=== PATIENT | female | born 1995 | race Caucasian/White ===

== ENCOUNTER 2021-04-14 12:17 | Day surgery (SDC) | payer BC, OTHER ==
[~2021-04-14 12:17] MED LIST: Lactated Ringers 1,000 ML IV SCH; Sodium Chloride 0.9% 10 ML Syringe FLUSH PRN
[2021-04-14] MEDS ORDERED: Propofol 200 MG/20 ML SDV ONE ×3 (13:00→14:21)
[2021-04-14] MEDS ORDERED: fentaNYL 100 MCG/2 ML SDV ONE (13:00)
--- NOTE | 2021-04-15 08:17 | OR ---
PREOPERATIVE DIAGNOSES: 1. Irritable bowel syndrome, diarrhea predominance. 2. Rectal pain with history of rectal bleeding. This was thought to be due to anal fissure. Symptoms improved. 3. History of small intestinal bacterial overgrowth. Previously treated with rifaximin x2 courses. 4. Patient has had previous colonoscopy with GI in [place] 12/2016. Biopsies at that time were unrevealing. More recently, she has had positive fecal leukocytes and positive fecal calprotectin tests. 5. History of slow transit on gastric emptying study. No family history of colon cancer. POSTOPERATIVE DIAGNOSES: 1. Possible mild area of inflammation to the terminal ileum. Biopsies taken from distal ileum and terminal ileum. Friable mucosa noted with these biopsies in the terminal ileum. 2. Otherwise normal-appearing colon. Random biopsies were taken from each segment as well as the rectal area. PROCEDURE: Colonoscopy with cold biopsies x2 sites (distal and terminal ileum as well as random colon). SURGEON: Migue Way M.D. ANESTHESIA: Monitored anesthesia care. BOWEL PREP: Good. DESCRIPTION OF PROCEDURE: [place] is a 25-year-old female who was brought to the endoscopy suite after discussing risks and benefits of the procedure. Informed consent was obtained for conscious sedation and colonoscopy with or without biopsy and/or polypectomy. We also discussed possibility of missed lesions. Pre-procedure exam was unremarkable. IV, oxygen, and monitors were placed. The patient was placed in the left lateral decubitus position. Sedation was administered and a digital rectal exam was performed and unremarkable. Colonoscope was passed into the rectum and slowly advanced all the way to the cecum. Cecum was viewed and photographed. Ileocecal valve was intubated and distal ileum was normal in appearance, although an area of the terminal ileum did show some possible mild inflammation which was friable when biopsying this site. The colonoscope was slowly withdrawn and the mucosa was closely observed in a direct circumferential manner. The ascending colon was unremarkable. The transverse colon was unremarkable. The descending colon was unremarkable. The sigmoid colon was unremarkable. Retroflexion was performed. Rectal mucosa was unremarkable. Random biopsies were taken from each of these segments. Scope was removed. The patient tolerated the procedure well. The patient was monitored until that baseline status. Discharge instructions were reviewed and the patient was discharged in good condition. COMPLICATIONS: None. TOTAL TIME: 22 minutes. ESTIMATED BLOOD LOSS: 1 to 2 mL. RECOMMENDATIONS/FOLLOWUP: We will await results of path report and send a letter with results. No change in medications at this time. I would like to kindly thank Amara Archer for this referral. DMB: 04/14/2021 14:52:27 MODL: 04/14/2021 15:15:31 /[id number]
== END 2021-04-14 15:45 | disposition home or self-care (01) ==
LOC: VM.SDS 12:17
PROVIDERS: ATTEND Family Medicine
DX: K58.0 Irritable bowel syndrome with diarrhea (principal); K62.5 Hemorrhage of anus and rectum; Z98.890 Other specified postprocedural states; Z79.899 Other long term (current) drug therapy
CPT/HCPCS: 00811; 45380; J2704; J3010; J7120